=== PATIENT | female | born 1955 | race Caucasian/White ===

== ENCOUNTER 2017-02-15 06:40 | Day surgery (SDC) | payer OTHER ==
[~2017-02-15] VITALS: Ht 167.6 cm; Wt 51.7 kg
[~2017-02-15 06:40] MED LIST: COREG12.5 M1 PO; ISOSORBIDE MONO60 MG PO; LASIX40 MG PO; LIPITOR80 MG PO; LO-DOSE ASPIRIN81 M2 PO; LOPRESSOR25 MG PO; NORVASC10 MG PO; PACERONE100 MG PO; PLAVIX75 MG PO; TUMS500 MG PO
[2017-02-15 07:17] VITALS: BP 125/73
[2017-02-15 07:18] LABS: HEMATOCRIT 32.8 % (36.0-46.0); MCH 26.7 PG (29.0-34.0); MCHC 30.5 G/DL (30.0-36.0); MCV 87.5 FL (83-99); MEAN PLAT.VOLUME 9.2 uM^3 (9.5-12.4); PLATELET COUNT 226 K/uL (156-360); RBC DIS.WIDTH-CV 17.1 % (11.8-14.6); RBC DIS.WIDTH-SD 54.4 % (39-53); RED BLOOD COUNT 3.75 M/uL (3.80-5.20); WHITE BLOOD COUNT 7.4 K/uL (4.1-10.2)
[2017-02-15 07:39] LABS: ANION GAP 15 MEQ/L (2-14); CHLORIDE 100 MEQ/L (99-109); POTASSIUM 3.6 MEQ/L (3.7-5.4); SAMPLE HEMOLYSIS CHECK 0; SAMPLE ICTERIC CHECK 0; SAMPLE LIPEMIA CHECK 0; SODIUM 138 MEQ/L (136-147)
[2017-02-15 07:45] LABS: GFR ESTIMATE (CALCULATED) 12 mL/min/; GLUCOSE 88 mg/dL (70-99); UREA NITROGEN (BUN) 45 mg/dL (9-23)
[2017-02-15 08:29] LABS: METH RESISTANT S AUREUS PCR NEGATIVE (NEGATIVE)
[2017-02-15 08:32] LABS: PROBE CHECK PASS; SPECIMEN PROCESSING CONTROL PASS
[2017-02-15 12:00] VITALS: BP 153/65
== END 2017-02-15 12:30 | disposition home or self-care (01) ==
LOC: SDC 06:40
PROVIDERS: Surgery
PROC: 03180JD Bypass Left Brachial Artery to Upper Arm Vein with Synthetic Substitute, Open Approach (ICD-10-PCS; principal; 2017-02-15)
DX: I12.0 Hypertensive chronic kidney disease with stage 5 chronic kidney disease or end stage renal disease (principal); N18.6 End stage renal disease; Z99.2 Dependence on renal dialysis; J44.9 Chronic obstructive pulmonary disease, unspecified; Z99.81 Dependence on supplemental oxygen; M19.90 Unspecified osteoarthritis, unspecified site; I48.91 Unspecified atrial fibrillation; I25.10 Atherosclerotic heart disease of native coronary artery without angina pectoris; I25.2 Old myocardial infarction; Z95.5 Presence of coronary angioplasty implant and graft; Z95.820 Peripheral vascular angioplasty status with implants and grafts; Z79.82 Long term (current) use of aspirin; Z87.891 Personal history of nicotine dependence
CPT/HCPCS: 80048; 85027; 87641; C1768; J0131; J0690; J1644; J2250; J2405; J2720; J3010